=== PATIENT | female | born 2000 | race Hispanic/Latino ===

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

== ENCOUNTER 2021-12-24 21:11 | Emergency (ER) | payer OTHER ==
[~2021-12-24] VITALS: Ht 162.6 cm; Wt 90.3 kg
[~2021-12-24 21:11] MED LIST: CEFDINIR300 MG PO
== END 2021-12-24 21:50 | disposition home or self-care (01) ==
LOC: FSED 21:14
DX: R05.9 Cough, unspecified (principal); J03.90 Acute tonsillitis, unspecified; Z98.84 Bariatric surgery status
CPT/HCPCS: 83518; 99282

== ENCOUNTER 2022-01-19 23:18 | Emergency (ER) | payer OTHER ==
[~2022-01-19] VITALS: Ht 162.6 cm; Wt 90.3 kg
[2022-01-20] MEDS ORDERED: IBUPROFEN 600 MG TAB PO STA (00:41)
[2022-01-20] MEDS ORDERED: TRAMADOL HCL 50 MG TAB PO ONE (00:45)
[2022-01-20] MEDS ORDERED: CORTISPORIN-TC10 M1 RIGHT EAR (00:48)
[2022-01-20] MEDS ORDERED: ULTRAM 50MG50 MG PO (00:49)
[2022-01-20] MEDS ORDERED: TRAMADOL HCL 50 MG TAB ONE (01:00)
[2022-01-20] MEDS ORDERED: IBUPROFEN 600 MG TAB ONE (01:00)
== END 2022-01-20 01:15 | disposition home or self-care (01) ==
LOC: FSED 23:30
DX: H60.91 Unspecified otitis externa, right ear (principal)
CPT/HCPCS: 99283

== ENCOUNTER 2022-03-31 18:12 | Emergency (ER) | payer OTHER ==
[~2022-03-31] VITALS: Ht 162.6 cm; Wt 86.2 kg
[~2022-03-31 18:12] MED LIST changes: +CORTISPORIN-TC10 M1 RIGHT EAR; +ULTRAM 50MG50 MG PO
== END 2022-03-31 20:35 | disposition home or self-care (01) ==
LOC: FSED 18:18
DX: S00.81XA Abrasion of other part of head, initial encounter (principal); R59.1 Generalized enlarged lymph nodes; X58.XXXA Exposure to other specified factors, initial encounter
CPT/HCPCS: 99282

== ENCOUNTER 2022-07-14 09:33 | Emergency (ER) | payer OTHER ==
[~2022-07-14] VITALS: Ht 162.6 cm; Wt 89.8 kg
[2022-07-14] MEDS ORDERED: IBUPROFEN200 MG PO (10:13)
[2022-07-14] MEDS ORDERED: CEFDINIR300 MG PO (10:13)
[2022-07-14] MEDS ORDERED: NASACORT16.9 ML (10:13)
== END 2022-07-14 10:50 | disposition home or self-care (01) ==
LOC: FSED 09:43
DX: R09.89 Other specified symptoms and signs involving the circulatory and respiratory systems (principal); J02.0 Streptococcal pharyngitis; R09.81 Nasal congestion; R51.9 Headache, unspecified
CPT/HCPCS: 83518; 87400; 99282

== ENCOUNTER 2024-05-21 10:49 | Emergency (ER) | payer OTHER ==
[~2024-05-21] VITALS: Ht 162.6 cm; Wt 108.6 kg
[~2024-05-21 10:49] MED LIST changes: +AMOX TR-K CLV1 EAC2 PO; +AMOXICILLIN500 MG PO; +HYDROCORTISO453.6 GM TOP; +IBUPROFEN200 MG PO; +MAALOX MAXIMUM355 ML PO; +NASACORT16.9 ML; +OMEPRAZOLE20 M1 PO; +ONDANSETRON ODT4 MG PO
[2024-05-21 12:00] VITALS: PULSE 85; RESP 16; TEMP 98.6; O2SAT 98
== END 2024-05-21 12:00 | disposition home or self-care (01) ==
LOC: FSED 10:54
DX: R51.9 Headache, unspecified (principal); J06.9 Acute upper respiratory infection, unspecified; K21.9 Gastro-esophageal reflux disease without esophagitis; R01.1 Cardiac murmur, unspecified; Z11.52 Encounter for screening for COVID-19; Z87.19 Personal history of other diseases of the digestive system
CPT/HCPCS: 0223U; 83518; 87400; 99283

== ENCOUNTER 2024-09-30 17:24 | Emergency (ER) | payer OTHER ==
[~2024-09-30] VITALS: Ht 162.6 cm; Wt 110.7 kg
[2024-09-30 17:25] VITALS: PULSE 93; RESP 18; TEMP 98.2; O2SAT 100
[2024-09-30] MEDS ORDERED: LOPERAMIDE HCL 2 MG CAP PO ONE (17:45)
[2024-09-30] MEDS ORDERED: IMODIUM A-D2 M2 PO (17:57)
== END 2024-09-30 18:01 | disposition home or self-care (01) ==
LOC: FSED 17:28
DX: R19.7 Diarrhea, unspecified (principal); K21.9 Gastro-esophageal reflux disease without esophagitis; R01.1 Cardiac murmur, unspecified
CPT/HCPCS: 99284